=== PATIENT | male | born 1985 | race Caucasian/White ===

== ENCOUNTER → 2023-07-26 | Outpatient (CLI) | payer OTHER ==
[2023-07-26 09:24] LABS: PLATELET COUNT, AUTOMATED 295 10^3/uL (150-450)
[2023-07-26 09:41] LABS: INR 1.02; PARTIAL THROMBOPLASTIN TIME 23.9 SECONDS (24.8-34.2); PROTHROMBIN TIME 13.1 SECONDS (12.5-14.5)
[2023-07-26 09:54] LABS: COLLAGEN EPINEPHRINE 87 SECONDS (74-162)
== END ==
LOC: M LAB 08:53
PROVIDERS: ATTEND Orthopaedic Surgery
DX: Z01.818 Encounter for other preprocedural examination (principal)

== ENCOUNTER 2024-01-07 10:18 | Emergency (ER) | payer OTHER ==
[~2024-01-07] VITALS: Ht 188 cm; Wt 104.1 kg
[2024-01-07 11:04] LABS: BASO % 0.5 % (0.0-1.0); EOS % 0.6 % (0.0-3.0); HEMOGLOBIN 15.3 g/dl (13.5-17.5); LYMPH # 1.3 10^3/uL (1.5-5.0); LYMPH % 18.9 % (24.0-44.0); MEAN CORPUSCULAR HEMOGLOBIN 33.1 pg (27.0-33.0); MEAN CORPUSCULAR HGB CONC 34.8 g/dl (32.0-36.5); MEAN CORPUSCULAR VOLUME 95.2 fl (80.0-96.0); MONO # 0.8 10^3/uL (0.0-0.8); MONO % 11.8 % (2.0-8.0); NEUTROPHILS # 4.5 10^3/uL (1.5-8.5); NEUTROPHILS % 67.9 % (36.0-66.0); PLATELET COUNT, AUTOMATED 223 10^3/uL (150-450); RED BLOOD COUNT 4.62 10^6/uL (4.30-6.10); WHITE BLOOD COUNT 6.6 10^3/uL (4.0-10.0)
[2024-01-07 11:26] LABS: LIPASE 60 U/L (12-53)
[2024-01-07 11:27] LABS: AMYLASE 93 U/L (30-118)
[2024-01-07 11:28] LABS: ALBUMIN 4.3 G/DL (3.2-5.2); ALKALINE PHOSPHATASE 47 U/L (40-129); ALT/SGPT 206 U/L (7.0-40); AST/SGOT 175 U/L (<34); BILIRUBIN,DIRECT 0.3 MG/DL (<0.4); BILIRUBIN,TOTAL 0.8 MG/DL (0.3-1.2); BLOOD UREA NITROGEN 12 MG/DL (9-23); CALCIUM LEVEL 9.5 MG/DL (8.5-10.1); CARBON DIOXIDE LEVEL 26 MMOL/L (20-31); CHLORIDE LEVEL 100 MMOL/L (98-107); CREATININE FOR GFR 0.84 MG/DL (0.70-1.30); GLOMERULAR FILTRATION RATE > 60.0 (>60); GLUCOSE, FASTING 81 MG/DL (60-100); SODIUM LEVEL 135 MMOL/L (136-145); TOTAL PROTEIN 7.4 G/DL (5.7-8.2)
[2024-01-07] MEDS: GASTROGRAFIN SOLUTION 30ML PO SCH (13:39)
[2024-01-07] MEDS: ONDANSETRON 4MG 2ML VIAL IV ONE (13:50)
[2024-01-07] MEDS ORDERED: ISOVUE-370 76% 100ML VIAL As Ordered ONE (15:02)
[2024-01-07 16:00] VITALS: BP 141/95; TEMP 99.5; O2SAT 96
== END 2024-01-07 16:20 | disposition home or self-care (01) ==
LOC: M ED 10:18
DX: K76.0 Fatty (change of) liver, not elsewhere classified (principal); R74.01 Elevation of levels of liver transaminase levels
CPT/HCPCS: 74021; 74177; 80048; 80076; 81001; 82150; 83690; 85025; 93041; 96374; 99284; J2405; Q9963; Q9967